=== PATIENT | female | born 1995 | race Two or more races ===

== ENCOUNTER 2017-05-27 23:59 | Day surgery (SDC) | payer OTHER ==
[~2017-05-27] VITALS: Ht 157.5 cm; Wt 52.2 kg
[2017-05-28] MEDS ORDERED: DOXYCYCLINE HY100 M2 PO (17:09)
[2017-05-28] MEDS ORDERED: METHERGINE PO (17:09)
[2017-05-28] MEDS ORDERED: KETO10TA2 PO (17:09)
== END 2017-05-28 | disposition home or self-care (01) ==
LOC: ER 23:59 → CIR.AMB 05-28 11:19
DX: O03.1 Delayed or excessive hemorrhage following incomplete spontaneous abortion (principal)

== ENCOUNTER 2018-01-22 22:01 | Outpatient (CLI) | payer OTHER ==
[~2018-01-22 22:01] MED LIST: DOXYCYCLINE HY100 M2 PO; KETO10TA2 PO; METHERGINE PO
== END 2018-01-23 09:47 | disposition home or self-care (01) ==
LOC: OBS/DEL 22:01
DX: O26.893 Other specified pregnancy related conditions, third trimester (principal); R10.2 Pelvic and perineal pain; O23.43 Unspecified infection of urinary tract in pregnancy, third trimester; O60.03 Preterm labor without delivery, third trimester; Z34.83 Encounter for supervision of other normal pregnancy, third trimester